=== PATIENT | male | born 1965 | race Caucasian/White ===

== ENCOUNTER 2018-03-18 20:12 | Emergency (ER) | payer OTHER ==
[2018-03-18 20:21] VITALS: BP 151/84
--- NOTE | 2018-03-18 20:27 | UC ---
Laceration HPI - HPI Summary HPI Summary: 53 y/o male presents to the urgent care c/o 2 lacerations on the palmar side of the RT hand w/ a broken wine glass around 1915pm. Pt reports he was washing dishes and the whyte glass slipped and he tried to catch it an it broke. Pt can' t remember when was the last Tetanus Vaccine. Bleeding was controlled w/ pressure. Pain at touch is 2/10. Pt can move fingers w/o any difficulty. Pt denies numbness or tingling sensation over the hand or fingers, SOB, chest pain , abdominal pain, N/V/D. - History Of Current Complaint Chief Complaint: UCLaceration Stated Complaint: HAND LACERATION Time Seen by Provider: 03/18/18 20:25 Hx Obtained From: Patient Laceration Location: Hand - 2 palmar side lacerations w/ a wine glass Mechanism Of Injury: Sharp Trauma Onset/Duration: Sudden Onset - 1 hr ago, Still Present Severity: Mild Pain Intensity: 2 Pain Scale Used: 0-10 Numeric Aggravating Factors: Other: - touch Related History: Dominant Hand Right - Allergies/Home Medications Allergies/Adverse Reactions: Allergies Allergy/AdvReac Type Severity Reaction Status Date / Time No Known Allergies Allergy Verified 03/18/18 20:21 Home Medications: Home Medications Bp Med* 1 tab PO DAILY 03/18/18 [History Confirmed 03/18/18] PMH/Surg Hx/FS Hx/Imm Hx Previously Healthy: Yes Cardiovascular History: Hypertension - Surgical History Surgical History: Yes Surgery Procedure, Year, and Place: PAROTIDECTOMY, CHOLECYSTECTOMY, APPEDECTOMY , BILAT CARPAL TUNNEL - Family History Known Family History: Positive: Hypertension - Social History Occupation: Employed Full-time Lives: With Family Alcohol Use: Occasionally Substance Use Type: None Smoking Status (MU): Former Smoker - Immunization History Most Recent Tetanus Shot: unknown Hx Tetanus, Diphtheria Vaccination: No - unkown Review of Systems All Other Systems Reviewed And Are Negative: Yes Constitutional: Positive: Negative Skin: Positive: Other - 2 lacerations on the palmar side of the RT hand Eyes: Positive: Negative ENT: Positive: Negative Respiratory: Positive: Negative Cardiovascular: Positive: Negative Gastrointestinal: Positive: Negative Genitourinary: Positive: Negative Motor: Positive: Negative Neurovascular: Positive: Negative Musculoskeletal: Positive: Other: - Rt hand pain s/p laceration Neurological: Positive: Negative Psychological: Positive: Negative Is Patient Immunocompromised?: No Physical Exam - Summary Physical Exam Summary: Vital Signs Reviewed: Yes General: well developed, well nourished male sitting in the examining table w/o any apparent distress Eye Exam: Normal Eyes: Positive: Conjunctiva Clear - PERRLA, EOMI, fundi grossly normal ENT: Positive: Normal ENT inspection, Hearing grossly normal, Pharynx normal, TMs normal Neck: Positive: Supple, Nontender, No Lymphadenopathy Respiratory: Positive: Chest non-tender, Lungs clear, Normal breath sounds, No respiratory distress Cardiovascular: Positive: RRR, No Murmur, Pulses Normal, Brisk Capillary Refill Abdomen Description: Positive: Nontender, No Organomegaly, Soft. Negative: CVA Tenderness (R), CVA Tenderness (L) Bowel Sounds: Positive: Present Musculoskeletal: Positive: Strength Intact, ROM Intact, No Edema Neurological: Positive: Alert, Muscle Tone Normal Psychological Exam: Normal Skin: Positive: Palmar side of Rt hand w/ 2 linear superficial laceration. one in the middle of the hand 1.0cm size and the other is in the medial aspect of hand about 0.8cm in size, bleeding controlled w/ pressure, no foreign body observed. mild tenderness to palpation, FROM of RT hand , sensation intact, capillary refill brisk, and pulses WNL. Triage Information Reviewed: Yes Vital Signs: Initial Vital Signs Temp 97.8 F 03/18/18 20:17 Pulse 87 03/18/18 20:17 Resp 16 03/18/18 20:17 BP 151/84 03/18/18 20:17 Pulse Ox 100 03/18/18 20:17 Laceration Repair - Laceration Repair 1 Procedure Summary: 2 superficial linear lacerations on the palmar side of RT hand. One is 0.8cm in size doesn't need sutures, The other laceration involves also the subcutaneous tissue and is about 1.0cm in size which needs sutures. Description: Linear Laceration Size After Repair: Length (cm) - 1.0cm in size and 0.8cm Modified For Repair: Yes Type Injection: Local Anesthesia Used: 1.0% Lido Cleansing Completed Via Routine Prep: Yes Irrigation With Pressure Irrigation Device: Yes Closure Material: SteriStrips, Sutures - 4 sutures placed Closure Method: Single Layer Suture Of: Skin, SQ Suture Type: Nylon Laceration Course/Dx - Course/Dx Course Of Treatment: 53 y/o male presents to the urgent care c/o 2 lacerations on the palmar side of the RT hand w/ a broken wine glass around 1915pm. Pt reports he was washing dishes and the whyte glass slipped and he tried to catch it an it broke. Pt can't remember when was the last Tetanus Vaccine. Bleeding was controlled w/ pressure. Pain at touch is 2/10. Pt can move fingers w/o any difficulty. Pt denies numbness or tingling sensation over the hand or fingers, SOB, chest pain, abdominal pain, N/V/D. Hx obtained. Pt w/ palmar side of Rt hand w/ 2 linear superficial laceration. one in the middle of the hand 1.0cm size and the other is in the medial aspect of hand about 0.8cm in size, bleeding controlled w/ pressure, no foreign body observed on examination. X-ray of Rt hand ordered to r/o FB, Impression: no fracture or FB observed. LACERATION PROCEDURE NOTE: . Copious irrigation was done with saline by the nurse and the wound explored. There was no FB or deep structure injury noted. FROM of RT hand. procedure was explained and consent obtained, Timeout performed. The wound was anesthetized with 1 mL of 2% lido with good anesthesia. Sterile drape and prep were don. There were 4 sutures with 5.0 nylon type of suture in deeper laceration and 3 steri strips placed on the other superficial laceration. The length of the wound after closure was 1.0cm. No debridemlerated the procedure well without adverse effects. Neurovascular intact and FROM. Tdap ordered and applied by nurse. Pt advised to f/u suture removal in 10-12 days and if any signs of infection develop to immediately return to the urgent care of PCP for further management and treatment. Pt's BP is elevated today advised to decrease salt in diet, monitor BP and f/u with PCP for further management. Pt understood and agreed and left the clinic ambulating A&Ox3. - Differential Dx - Laceration/Wound Differental Diagnoses: Abrasion, Laceration, Puncture Wound, Tendon Laceration Provider Diagnoses: 1- RT hand laceration repair. 2- Uncontrolled HTN Discharge - Sign-Out/Discharge Documenting (check all that apply): Patient Departure - D/c home All imaging exams completed and their final reports reviewed: No Studies - Discharge Plan Condition: Stable Disposition: HOME Prescriptions: Bacitracin OINTMENT* 1 applic TOPICAL BID #1 tube Patient Education Materials: Care For Your Stitches (ED), Laceration (ED), Low- Sodium Diet (ED) Referrals: Justin Verma MD [Primary Care Provider] - 2 Weeks Additional Instructions: 1-Please apply topical antibiotic over the wound. Keep wound clean and dry 2- F/u suture removal 10-12 days days w/ your PCP or here at the urgent care. 3-Take Ibuprofen or Tylenol PO q6-8hrs prn for pain or swelling. Avoid heavy lifting or too much movement w/ your RT hand 4-Your BP is elevated today. please decrease salt in your diet, monitor BP and if it continues to be elevated please f/u with your PCP for further management - Billing Disposition and Condition Condition: STABLE Disposition: Home
[2018-03-18] MEDS ORDERED: Tetan/Diph/Pertus SYR(Tdap)* 0.5 ML SYR(BOOSTRIX) use SYR IM ONE (20:36)
[2018-03-18] MEDS ORDERED: Lidocaine 1%* 5 ML VIAL INJ ONE (20:36)
== END 2018-03-18 21:40 | disposition home or self-care (01) ==
LOC: UCEAST 20:12
DX: S61.411A Laceration without foreign body of right hand, initial encounter (principal); W25.XXXA Contact with sharp glass, initial encounter; Y92.9 Unspecified place or not applicable; Z87.891 Personal history of nicotine dependence
CPT/HCPCS: 12001; 90715; 99202; G0463

== ENCOUNTER 2018-10-06 10:33 | Emergency (ER) | payer OTHER ==
[2018-10-06 12:12] VITALS: BP 137/80
--- NOTE | 2018-10-06 12:13 | UC ---
Lower Extremity/Ankle HPI - HPI Summary HPI Summary: Pt has been having swelling and mild pain to right lower leg over the past 2 weeks. No injury, no hx of DVT, non-smoker. In the morning it is still swollen but increases as the day progresses. - History of Current Complaint Chief Complaint: UCGeneralIllness Stated Complaint: RIGHT FOOT/LEG CONCERN Time Seen by Provider: 10/06/18 12:12 Hx Obtained From: Patient Onset/Duration: Gradual Onset Severity Initially: Mild Severity Currently: Mild Pain Intensity: 6 Aggravating Factor(s): Ambulation Alleviating Factor(s): Rest, Elevation, Ice Able to Bear Weight: Yes - Allergies/Home Medications Allergies/Adverse Reactions: Allergies Allergy/AdvReac Type Severity Reaction Status Date / Time No Known Allergies Allergy Verified 10/06/18 12:12 Home Medications: Home Medications Amlodipine Besylate [Norvasc] 1 tab PO DAILY 10/06/18 [History Confirmed ] Dextroamphetamine/Amphetamine [Adderall Xr 20 mg Capsule] 1 tab PO DAILY [History Confirmed 10/06/18] Ibuprofen 600 mg PO ONCE 10/06/18 [History Confirmed 10/06/18] PMH/Surg Hx/FS Hx/Imm Hx Previously Healthy: Yes Cardiovascular History: Hypertension - Surgical History Surgical History: Yes Surgery Procedure, Year, and Place: PAROTIDECTOMY, CHOLECYSTECTOMY, APPEDECTOMY , BILAT CARPAL TUNNEL - Family History Known Family History: Positive: Hypertension - Social History Alcohol Use: Occasionally Substance Use Type: None Smoking Status (MU): Former Smoker When Did the Patient Quit Smoking/Using Tobacco: 1999 - Immunization History Most Recent Tetanus Shot: unknown Hx Tetanus, Diphtheria Vaccination: No - unkown Review of Systems All Other Systems Reviewed And Are Negative: Yes Motor: Positive: Negative Neurovascular: Positive: Negative Musculoskeletal: Positive: Calf Tenderness - Mild lateral right calf tenderness. Mild edema presently but worsens as the day progresses., Edema Is Patient Immunocompromised?: No Physical Exam Triage Information Reviewed: Yes Appearance: Well-Appearing, No Pain Distress, Well-Nourished Vital Signs: Initial Vital Signs Temp 98.3 F 10/06/18 12:04 Pulse 71 10/06/18 12:04 Resp 18 10/06/18 12:04 BP 137/80 10/06/18 12:04 Pulse Ox 97 10/06/18 12:04 Vital Signs Reviewed: Yes Respiratory: Positive: Lungs clear, Normal breath sounds, No respiratory distress, No accessory muscle use Cardiovascular: Positive: RRR, No Murmur, Pulses Normal, Brisk Capillary Refill Musculoskeletal: Positive: Strength Intact, ROM Intact, Other: - Right leg and foot mildly swollen, (not pittin edema) non-tender on palpation other than a very small area on the right lateral calf. The lower leg feels warmer than the left lower leg, but no definite cellulitis. Good periph pulses, neurosensation, cap refill. Lower Extremity Course/Dx - Course Course Of Treatment: Pt needs to have a venous doppler to check for a DVT. We do not have that capability on the weekend at this facility. Pt is referred to [facility] ( their preference) for further evaluation. I called the admission desk at the ER to advise of patient referral. - Differential Dx/Diagnosis Provider Diagnosis: Lower extremity pain, right Discharge - Sign-Out/Discharge Documenting (check all that apply): Patient Departure All imaging exams completed and their final reports reviewed: No Studies - Discharge Plan Condition: Fair Disposition: HOME-RECOMMEND TO ED Referrals: Justin Verma MD [Primary Care Provider] - Additional Instructions: It is recommended that you go to [facility] for further evaluation and treatment of a possible DVT (blood clot) in your leg. - Billing Disposition and Condition Condition: FAIR Disposition: Home-Recommend to ED - Attestation Statements Provider Attestation: Per institutional requirements, I have reviewed the chart, however, I was not consulted specifically or made aware of this patient by the midlevel provider. I did not personally evaluate, interact with , or disposition this patient.
== END 2018-10-06 12:30 | disposition home health service (06) ==
LOC: UCCORT 10:33
DX: M79.661 Pain in right lower leg (principal); I10 Essential (primary) hypertension; Z87.891 Personal history of nicotine dependence
CPT/HCPCS: 99212; G0463